=== PATIENT | male | born 1975 | race Caucasian/White ===

== ENCOUNTER 2020-02-23 16:00 | Outpatient (RCR) | payer BC, SELFPAY ==
--- NOTE | 2020-02-11 17:26 | OTOPEVAL ---
Thank you for referring Jayson Starkey to [facility].? The patient is scheduled to be seen for therapy? ____x/week for ___ weeks. Please review, sign, date and return this plan of care DARRICK. I agree with and certify that the following plan of care is medically necessary. Referring Physician Date Admitting Provider: Attending Provider: PHYSICIAN NOT ON STAFF Referring Provider: *OT Outpatient Evaluation Start: 02/11/20 13:09 Freq: Status: Active Protocol: Document 02/11/20 14:00 [facility] (Rec: 02/11/20 15:00 [facility] [id number]) Therapy Assessment Status Assessment Status Assessment Status Evaluation Outpatient Past Medical History Cardiovascular History Hx Coronary Stent Yes: 01/2017 Hx Hypertension Yes Evaluation Information Problem Diagnosis CTR Onset 01/27/20 Cause carpal tunnel of left wrist, cubital tunnel syndrome on left Subjective Information Patient had carpal tunnel Query Text:As Reported By Patient/ release and ulnar nerve Family transposition on 01/27/20. He reports since surgery the symptoms have increased a little, specifically the numbness and tingling. Patient reports numbness and tingling in the medial elbow and medial aspect of small finger and hand. Patient reports increased symptoms with driving and holding certain positions. Diagnostic Tests X-Rays For This Problem Yes Prior Level of Function Activity Level (Last 3 Months) Hand Dominance Right Activity of Daily Living Ability Independent Indoor/Home Mobility Independent Community Mobility Independent Stairs Ability Independent Functional Cognition (Planning, Shopping Independent , Taking Medications) Cooking Yes Cleaning Yes Laundry Yes Shopping Yes Driving Yes Home Setting Home Type House Living Situation With Adult Child,With Spouse Mobility Assistive Devices (Used Last 3 None Months) Comments Additional Prior Level of Function patient works part time and Comments reports that he has to do a lot of driving. Pain Assessment Timing of Pain Assessment Timing of Pa
--- NOTE | 2020-02-23 17:03 | PTOPEVAL ---
Thank you for referring Jayson Stareky to [facility].? The patient is scheduled to be seen for therapy? __2_x/week for _6__ visits. Please review, sign, date and return this plan of care DARRICK. I agree with and certify that the following plan of care is medically necessary. Referring Physician Date Admitting Provider: Attending Provider: PHYSICIAN NOT ON STAFF Referring Provider: *PT Outpatient Evaluation Start: 02/23/20 16:06 Freq: Status: Active Protocol: Document 02/23/20 16:07 [facility] (Rec: 02/23/20 17:02 [facility] [id number]) Therapy Assessment Status Assessment Status Assessment Status Evaluation Outpatient Past Medical History Cardiovascular History Hx Coronary Stent Yes: 01/2017 Hx Hypertension Yes Evaluation Information Problem Diagnosis cervical radiculitis Onset 01/27/20 Subjective Information Pt. reports that he underwent Query Text:As Reported By Patient/ cubital tunnel and CTR on 01/26 Family . He reports no change in his symptoms since surgery. He reports that he has long hx of neck problems and doctor has concern that symptoms may be more related to the neck. He states that he has chronic pain described at the base of the neck and along the left shoulder blade. Pt. reports that he cannot sleep through the night due to pain. He reports that he cannot lay on the left shoulder. 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 He reports that his goal is to decrease his pain. Diagnostic Tests X-Rays For This Problem Yes Prior Level of Function Activity Level (Last 3 Months) Hand Dominance Right Activity of Daily Living Ability Independent Indoor/Home Mobility Independent Community Mobility Independent Stairs Ability Independent Functional Cognition (Planning, Shopping Independent , Taking Medications) Cooking Yes Cleaning Yes Laundry Yes Shopping Yes Driving Yes Pain Assessment Pain Scale Pain Scale Used Numeric (1 - 10) Self Report Pain Assessment Left Arm
== END 2020-03-08 18:54 | disposition home or self-care (01) ==
LOC: CHSPT 16:00
DX: G56.22 Lesion of ulnar nerve, left upper limb (principal); G56.02 Carpal tunnel syndrome, left upper limb
CPT/HCPCS: 97012; 97014; 97035; 97110; 97140; 97161; 97165; G0283

== ENCOUNTER 2020-11-09 07:25 | Outpatient (CLI) | payer BC, SELFPAY ==
[2020-11-09 08:34] LABS: SARS-CoV-2 RNA PCR Negative (Negative)
== END 2020-11-09 07:26 | disposition home or self-care (01) ==
LOC: CHSLAB 07:30
PROVIDERS: PCP Nurse Practitioner Family; Visit Provider Family Medicine
DX: Z20.822 Contact with and (suspected) exposure to COVID-19 (principal)
CPT/HCPCS: C9803; U0003; U0005

== ENCOUNTER 2021-06-15 00:08 | Day surgery (SDC) | payer BC, SELFPAY ==
[2021-04-19 13:00] VITALS: BMI 26.2
--- NOTE | 2021-05-09 11:29 | PC.NURSE ---
PT DENIES ANY CHANGES IN MEDICAL HX. OR MEDICATIONS SINCE PREVIOUS INTERVIEW
[2021-06-08 14:00] VITALS: BMI 26.4
[2021-06-15 12:16] VITALS: BP 130/71; PULSE 74; RESP 18; TEMP 36.2; O2SAT 99
--- NOTE | 2021-06-15 12:23 | PM.HPGS ---
History of Present Illness History of Present Illness Consent: Risks, benefits, and alternatives have been discussed and questions answered. Patient agrees to proceed with procedure. Chief complaint: hemorrhoids Narrative: Jayson Starkey is a 45 year old male here with hemorrhoids, tried otc treatment Review of Systems Constitutional: Constitutional: Denies headache(s) and Denies weakness Eyes: Eyes: Denies blurry vision ENT: Reports Normal hearing present, Denies headache(s) and Denies neck pain Cardiovascular: Cardiovascular: Denies chest pain and Denies dyspnea Respiratory: Respiratory: Denies dyspnea Gastrointestinal: Gastrointestinal: Reports no additional gastrointestinal complaints Genitourinary: Genitourinary: Denies dysuria Musculoskeletal: Musculoskeletal: Denies neck pain Integumentary/Breasts: Skin/Breast: Denies dry skin Neurologic: Reports Normal hearing present, Denies headache(s) and Denies weakness Psychiatric: Psychiatric: Denies anxiety Endocrine: Endocrine: Denies change in body appearance Hematologic/Lymphatic: Hematologic/Lymphatic: Denies easy bleeding Allergic/Immunologic: Allergic/Immunologic: Denies urticaria PMFSH Past Medical History Medical History (Updated 06/15/21 @ 12:24 by Melvin Werner MD) Colon cancer screening Heart disease Hemorrhoid Hypertension Rectal bleeding Family History Family History Other Hypertension Social History Social History (Updated 03/17/21 @ 08:15 by Shawanda Toney CMA) Smoking status: Never smoker Alcohol intake: current Alcohol use details: occasional Substance use: never Substance use type: does not use Living arrangements: with family Spiritual care concerns: No Meds Home Medications and Allergies Home Medications Medication Instructions Recorded Confirmed Type atorvastatin 80 mg tablet 80 mg PO DAILY 03/17/21 06/08/21 History celecoxib 200 mg capsule 200 mg PO DAILY 03/17/21 06/08/21 History doxycycline hyclate 20 mg tablet 20 mg PO Q12H 03/17/21 06/08/21 History lisinopril 20 mg tablet 20 mg PO DAILY 03/17/21 06/08/21 History oxycodone 10 mg tablet 10 mg PO Q4H PRN 03/17/21 06/08/21 History aspirin 81 mg PO DAILY 04/19/21 06/08/21 History Allergies Allergy/AdvReac Type Severity Reaction Status Date / Time shellfish derived Allergy Severe THROAT Verified 06/15/21 12:10 SWELLING, VOMITING. Exam Const: General: comfortable and no acute distress HENMT: General nose exam: Normal nares present Eyes: General: appearance normal, both eyes and all related structures Neck: Neck: no JVD Resp: Auscultation: clear to auscultation bilaterally Cardio: Rate: regular rate Rhythm: regular rhythm GI: Inspection: non-distended GI Palp: Yes Soft to palpation Skin: General skin exam: normal color Neuro: General: gait normal Speech: normal speech Extrem: General: normal to inspection Psych: Mental Status: mental status grossly normal Assessment and Plan Assessment and plan (1) Hemorrhoid: Code(s): K64.9 - Unspecified hemorrhoids Status: Acute Assessment and Plan: will proceed with IRC treatment
--- NOTE | 2021-06-15 12:45 | W.PM.PROC2 ---
Procedure Note - Detailed Date of Procedure 06/15/21 Pre-op Diagnosis hemorrhoids Post-op Diagnosis Same Procedure Performed IRC of hemorrhoids Surgeon Melvin Werner MD Anesthesia None Findings grade II internal hemorrhoids Description of Procedure no anal fissure. I introduced anoscope and noted grade II internal hemorrhoids, then I advanced IRC probe and hemorrhoid treated x5, 1.5 seconds each time, no complications. Complications No immediate complications Condition Stable
== END 2021-06-15 12:25 | disposition home or self-care (01) ==
PROVIDERS: PCP Nurse Practitioner Family; Visit Provider Internal Medicine Gastroenterology
PROC: (CPT 46930; principal; 2021-06-15 13:00)
DX: K64.1 Second degree hemorrhoids (principal); I11.9 Hypertensive heart disease without heart failure
CPT/HCPCS: 46930

== ENCOUNTER 2023-06-26 13:55 | Outpatient (RCR) | payer BC, SELFPAY ==
--- NOTE | 2023-06-26 15:14 | OPREHPOC ---
Outpatient Therapy Plan of Care This is a Multidisciplinary Plan of Care that may contain components documented by all disciplines (PT, OT, and ST.) PT Problem 1 PT Problem #1 Knowledge Deficit PT Goal 1 Goal The patient will be independent in a home exercise program. Target Visit 4 PT Problem 2 PT Problem #2 Pain PT Goal 1 Goal The patient will report no greater than 3/10 bilateral shoulder pain with all daily activities. Target Visit 12 PT Problem 3 PT Problem #3 Impaired Range of Motion PT Goal 1 Goal The patient will demonstrate at least 70 degrees of bilateral shoulder ER to improve ability to reach into back seats/don a seatbelt. The patient will demonstrate at least 150 degrees of bilateral shoulder flexion to improve overhead reaching ability. Target Visit 12 PT Problem 4 PT Problem #4 Impaired Functional Mobil PT Goal 1 Goal The patient will demonstrate 10% or less self perceived disability per the Quick DASH. The patient will demonstrate the ability to lift 20# overhead without increased bilateral shoulder pain. Target Visit 12 PT Problem 5 PT Problem #5 Impaired Strength PT Goal 1 Goal The patient will demonstrate 4+/5 bilateral shoulder strength to improve ability to lift weights for exercise. Target Visit 12
--- NOTE | 2023-06-26 15:14 | PTOPEVAL1 ---
Assessment and note entered by Jeana Levy, PT Evaluation Information Assessment Status Evaluation Diagnosis B shoulder tendonitis Onset 05/31/23 Subjective Information Jayson reports he started having pain in his shoulders about 2-3 months ago. He reports he is active lifting weights and kettlebells and has had to back down on his weight due to pain. He had an injection in left shoulder about 2 months ago that did reduce some of his pain. He has worse pain when he tries to push up from sitting with his arm behind him and when he tries to reach for items in the back seat of his car. He notes less strength in his shoulders and difficulty keeping his arms out in front of him while using his zero turn mower. He feels like his right shoulder is popping out of socket when he tries to reach out behind him. He does not recall an injury to either shoulder. He is right hand dominant. Reported Pain Level Pain Score 0,0: Self Report Assessment PT Clinical Summary Jayson Starkey presents with bilateral shoulder pain with the right worse than the left. He reports difficulty reaching behind him into the back seat of a vehicle and difficulty pushing up to sitting or standing with his hand behind him. He is also not able to lift weights like he did previously. He objectively demonstrates decreased and painful shoulder AROM bilaterally, decreased shoulder strength bilaterally, impaired posture, and positive special tests for impingement and rotator cuff tendinopathy. He will benefit from skilled PT to address these limitations. Plan of Care Interventions Electrical Stimulation,Hot Pack/Cold Pack,Manual Therapy,Neuro Re-education,Patient/Caregiver Educati,Therapeutic Activities,Therapeutic Exercise PT Services Indicated Yes Treatment Frequency and 3 times a week for 12 visits Duration These treatments will address the objective and functional deficits as defined above. The patient will be advanced safely and appropriately in order for the patient to progress towards his/her prior level of function. Additional exercises will be introduced and as well as a comprehensive home exercise program upon discharge, if needed, ?to ensure carryover of functional gains achieved in the clinic. This treatment plan has been reviewed and agreement upon by the patient.
--- NOTE | 2023-06-29 07:11 | PCPTNOTE ---
patient cancelled appt this morning. no reason given
--- NOTE | 2023-07-23 13:43 | OPREHPOC ---
Outpatient Therapy Plan of Care This is a Multidisciplinary Plan of Care that may contain components documented by all disciplines (PT, OT, and ST.) PT Problem 1 PT Problem #1 Knowledge Deficit PT Goal 1 Goal The patient will be independent in a home exercise program. Target Visit 4 Progress Met PT Problem 2 PT Problem #2 Pain PT Goal 1 Goal The patient will report no greater than 3/10 bilateral shoulder pain with all daily activities. Target Visit 12 Progress Not Met PT Problem 3 PT Problem #3 Impaired Range of Motion PT Goal 1 Goal The patient will demonstrate at least 70 degrees of bilateral shoulder ER to improve ability to reach into back seats/don a seatbelt. The patient will demonstrate at least 150 degrees of bilateral shoulder flexion to improve overhead reaching ability. Target Visit 12 Progress Met PT Problem 4 PT Problem #4 Impaired Functional Mobil PT Goal 1 Goal The patient will demonstrate 10% or less self perceived disability per the Quick DASH. The patient will demonstrate the ability to lift 20# overhead without increased bilateral shoulder pain. met Target Visit 12 Progress Partially Met PT Problem 5 PT Problem #5 Impaired Strength PT Goal 1 Goal The patient will demonstrate 4+/5 bilateral shoulder strength to improve ability to lift weights for exercise. Target Visit 12 Progress Met
--- NOTE | 2023-07-23 13:43 | PTOPDC ---
Assessment and note entered by Birgit Dotson DPT Evaluation Information Assessment Status Discharge Diagnosis B shoulder tendonitis Onset 05/31/23 Subjective Information since starting PT he reports that shoulders are now more sore with working out rather than having pain. he reports he is compliant with HEP. He reports soreness is present with overhead activity . he reports at home he is able to do all activity and has some tenderness to the R shoulder. He would like to make today his last visit. Reported Pain Level Pain Score 0,2: Self Report Assessment PT Clinical Summary Mr. Starkey attended 10 visits of skilled PT with good progression towards goals. He met goals for strength, ROM, and HEP. He did not meet goals for pain or QuickDash scoring. He reports pain has decreased since start of PT and he has been able to return to all previous activities with less difficulty. He is independent with HEP and is agreeable to DC at this time. Plan of Care PT Services Indicated No
== END 2023-07-23 20:00 | disposition home or self-care (01) ==
LOC: CHSPT 13:55
DX: M75.81 Other shoulder lesions, right shoulder (principal); M75.82 Other shoulder lesions, left shoulder
CPT/HCPCS: 97014; 97110; 97150; 97161; G0283